=== PATIENT | male | born 1945 | race Caucasian/White ===

== ENCOUNTER 2021-10-02 01:20 | Emergency (ER) | payer MEDICARE ==
[~2021-10-02] VITALS: Ht 180.3 cm; Wt 72.6 kg
[~2021-10-02 01:20] MED LIST: ALTACE5 MG PO; BRILINTA60 MG PO; BUMETANIDE1 MG PO; COREG3.125 MG PO; CRESTOR20 MG PO; EFFIENT10 MG PO; ENTRESTO 49 MG1 EACH PO; FLOMAX 0.4 MG0.4 MG PO; GLUCOPHAGE 500500 MG PO; JANUVIA 100 MG100 MG PO; LOPRESSOR 25 MG25 MG PO; NICOTINE PATCH1 EAC1 TD; NITROSTAT0.4 MG SL; PLAVIX 75 MG TA75 MG PO; PRAVASTATIN SOD40 MG PO; PROAIR DIGIHAL90 MCG INH; PROSCAR 5 MG TAB5 MG PO; RANEXA1000 MG PO; SINGULAIR10 MG PO; SPIRIVA HANDIH18 MCG INH; SPIRONOLACTONE25 MG PO; ZYRTEC10 MG PO
[2021-10-02 03:11] LABS: HEMOGLOBIN 11.7 gm/dl (14.0-17.5); RED BLOOD COUNT 3.75 M/UL (4.20-5.50)
== END 2021-10-02 09:20 | disposition short-term general hospital (02) ==
LOC: ER1 01:20
PROVIDERS: Emergency Medicine
DX: I21.4 Non-ST elevation (NSTEMI) myocardial infarction (principal); I25.10 Atherosclerotic heart disease of native coronary artery without angina pectoris; E78.5 Hyperlipidemia, unspecified; I10 Essential (primary) hypertension
CPT/HCPCS: 71045; 80053; 82550; 82553; 83874; 83880; 84484; 85025; 85610; 85730; 93005; 99285; J1644